=== PATIENT | female | born 1980 | race Caucasian/White ===

== ENCOUNTER 2019-01-07 19:40 | Emergency (ER) | payer BC ==
--- NOTE | 2019-01-07 19:46 | EDM.PDOC ---
ED HPI GENERAL MEDICAL PROBLEM - General Chief Complaint: Lower Extremity Injury/Pain Stated Complaint: RT KNEE INJURY Time Seen by Provider: 01/07/19 19:45 Source of Information: Reports: Patient History Limitations: Reports: No Limitations - History of Present Illness INITIAL COMMENTS - FREE TEXT/NARRATIVE: HISTORY AND PHYSICAL: History of present illness: Patient is a 38-year-old female who presents to the emergency room with complaints of right knee pain post fall on 01/02/2019. She states she was walking when her dog had stepped in front of her causing her to trip and fall landing on her right knee. Since that time she has had pain which has not resolved. She has been using Tylenol and ibuprofen with minimal relief. She denies hitting her head or having any loss of consciousness. She denies any other extremity involvement. Denies any systemic complaints. Review of systems: As per history of present illness and below otherwise all systems reviewed and negative. Past medical history: As per history of present illness and as reviewed below otherwise noncontributory. Surgical history: As per history of present illness and as reviewed below otherwise noncontributory. Social history: See social history for further information Family history: As per history of present illness and as reviewed below otherwise noncontributory. Physical exam: General: Well developed and well nourished 38-year-old female. Alert and oriented. Nontoxic appearing and in no acute distress. HEENT: Atraumatic, normocephalic, pupils equal and reactive bilaterally, negative for conjunctival pallor or scleral icterus, mucous membranes moist, trachea midline. No drooling or trismus noted. No meningeal signs. No hot potato voice noted. Lungs: Clear to auscultation, breath sounds equal bilaterally, chest nontender. Heart: S1S2, regular rate and rhythm without overt murmur Abdomen: Soft, nondistended, nontender. Negative for masses or costovertebral tenderness. Pelvis: Stable nontender. Skin: Intact, warm, dry. No lesions or rashes noted. Extremities: Ambulatory, moves all extremities per self without difficulty or deficits, negative for cords or calf pain. No knee instability. Complaining of pain to the medial and lateral ligaments of the knee. No patellar or posterior knee pain. The pulse. Cap refill less than 3 seconds. Neurovascular unremarkable. Neuro: Awake, alert, oriented. Cranial nerves II through XII unremarkable. Cerebellum unremarkable. Motor and sensory unremarkable throughout. Exam nonfocal. Notes: Patient is aware of the limitations of x-ray. Encouraged her to follow-up with orthopedic as she may need further imaging. Patient fitted for crutches and knee immobilizer. Medication and supportive care measures were reviewed and discussed. Voices understanding and is agreeable to plan of care. Denies any further questions or concerns at this time. Diagnostics: Knee x-ray Therapeutics: Knee immobilizer, crutches, Tramadol Prescription: Tramadol Impression: Right knee injury Plan: 1. Rest, ice, elevate the affected extremity. Please wear the splint as directed. 2. Tylenol and/or Ibuprofen as needed for pain management. 3. Follow up with the Orthopedic provider as we discussed. Return to the ED as needed and as discussed. Definitive disposition and diagnosis as appropriate pending reevaluation and review of above. Right Knee Pain Score (Numeric/FACES): 7 - Related Data Allergies Allergy/AdvReac Type Severity Reaction Status Date / Time No Known Allergies Allergy Verified 01/07/19 19:51 Home Meds: Home Meds FLUoxetine HCl [Prozac] 1.5 tab PO DAILY 01/07/19 [History] cloNIDine HCl [Catapres] 0.2 mg PO DAILY 01/07/19 [History] traMADol [Ultram] 50 mg PO Q4H PRN #15 tab 01/07/19 [Rx] Review of Systems - Review of Systems Review Of Systems: ROS reveals no pertinent complaints other than HPI. ED EXAM, GENERAL - Physical Exam Exam: See Below (See dictation) Course - Vital Signs Last Recorded V/S: Last Vital Signs Temp 98.3 F 01/07/19 20:28 Pulse 80 01/07/19 20:28 Resp 18 01/07/19 20:28 BP 163/80 H 01/07/19 20:28 Pulse Ox 98 01/07/19 20:28 - Orders/Labs/Meds Orders: Active Orders 24 hr Category Date Time Status DME for Discharge [COMM] Stat Oth 01/07/19 19:59 Ordered Meds: Medications Discontinued Medications Generic Name Dose Route Start Last Admin Trade Name Freq PRN Reason Stop Dose Admin Tramadol HCl 50 mg 01/07/19 19:59 01/07/19 20:10 Ultram PO 08/20/19 20:00 50 mg ONETIME ONE Administration Departure - Departure Time of Disposition: 21:30 Disposition: Home, Self-Care 01 Clinical Impression: Right knee injury Qualifiers: Encounter type: initial encounter Qualified Code(s): S89.91XA - Unspecified injury of right lower leg, initial encounter - Discharge Information Prescriptions: traMADol [Ultram] 50 mg PO Q4H PRN #15 tab PRN Reason: Pain Instructions: Crutch Use, Adult, [id number], Knee Sprain, Adult, [id number] , How to Use a Knee Immobilizer, [id number] Referrals: PCP,None [Primary Care Provider] - Forms: ED Department Discharge Additional Instructions: The following information is given to patients seen in the emergency department who are being discharged to home. This information is to outline your options for follow-up care. We provide all patients seen in our emergency department with a follow-up referral. The need for follow-up, as well as the timing and circumstances, are variable depending upon the specifics of your emergency department visit. If you don't have a primary care physician on staff, we will provide you with a referral. We always advise you to contact your personal physician following an emergency department visit to inform them of the circumstance of the visit and for follow-up with them and/or the need for any referrals to a consulting specialist. The emergency department will also refer you to a specialist when appropriate. This referral assures that you have the opportunity for follow-up care with a specialist. All of these measure are taken in an effort to provide you with optimal care, which includes your follow-up. Under all circumstances we always encourage you to contact your private physician who remains a resource for coordinating your care. When calling for follow-up care, please make the office aware that this follow-up is from your recent emergency room visit. If for any reason you are refused follow-up, please contact the [facility] Emergency Department at and asked to speak to the emergency department charge nurse. [facility] [address] [place] [id number] [address] 1. Rest, ice, elevate the affected extremity. Please wear the splint as directed. 2. Tylenol and/or Ibuprofen as needed for pain management. 3. Follow up with the Orthopedic provider as we discussed. Return to the ED as needed and as discussed. - My Orders Last 24 Hours: My Active Orders 01/07/19 19:59 DME for Discharge [COMM] Stat - Assessment/Plan Last 24 Hours: My Active Orders 01/07/19 19:59 DME for Discharge [COMM] Stat
[2019-01-07] MEDS ORDERED: traMADol 50 MG Tab PO ONE (19:59)
--- NOTE | 2019-01-07 20:44 | CR ---
INDICATION: Knee pain COMPARISON: None available. TECHNIQUE: The right knee was examined with AP, lateral and sunrise views for a total of three views. FINDINGS: There is no sign of fracture or dislocation. The medial and lateral compartments are normal in height. There is no sign of a joint effusion. No soft tissue abnormality is seen. IMPRESSION: Normal right knee. Dictated by Luis Galdamez MD @ Jan 07 2019 8:40PM Signed by Dr. Luis Galdamez @ Jan 07 2019 8:41PM
== END 2019-01-07 20:29 | disposition home or self-care (01) ==
LOC: MW.ED 19:40
DX: S89.91XA Unspecified injury of right lower leg, initial encounter (principal); Z79.899 Other long term (current) drug therapy; W01.0XXA Fall on same level from slipping, tripping and stumbling without subsequent striking against object, initial encounter
CPT/HCPCS: 73562; 99283; A9270

== ENCOUNTER 2020-12-20 18:00 | Emergency (ER) | payer BC ==
[2020-12-20] MEDS ORDERED: Lidocaine 1% 10 ML MDV INJECT ONE (19:55)
[2020-12-20] MEDS ORDERED: Diphtheria,Pertussis(Acell),Tetanus Vaccine 0.5 ML Syringe IM ONE (19:56)
--- NOTE | 2020-12-20 19:59 | EDM.PDOC ---
ED HPI GENERAL MEDICAL PROBLEM - General Chief Complaint: Laceration Stated Complaint: CUT THUMB ON Time Seen by Provider: 12/20/20 19:52 - History of Present Illness INITIAL COMMENTS - FREE TEXT/NARRATIVE: 40-year-old female presenting with a number of lacerations to the fingers of the right hand. Patient was opening a can and bent the lid back and sustained cuts to the pinky finger the middle finger and the thumb. Patient presents for evaluation. No pain bleeding was profuse initially but is now ceased. No pain in the hand and no other symptoms. Patient cannot recall her last tetanus. right thumb, laceration Pain Score (Numeric/FACES): 7 - Related Data Allergies Allergy/AdvReac Type Severity Reaction Status Date / Time acetaminophen [From Percocet] Allergy Swollen Verified 12/20/20 19:51 Tongue oxycodone [From Percocet] Allergy Swollen Verified 12/20/20 19:51 Tongue Home Meds: Home Meds FLUoxetine HCl [Prozac] 1.5 tab PO DAILY 01/07/19 [History] cloNIDine HCL [Catapres] 0.2 mg PO DAILY 01/07/19 [History] Past Medical History - Past Health History Medical/Surgical History: Denies Medical/Surgical History HERD TESTER History: Reports: Musculoskeletal History: Reports: Back Pain, Chronic Psychiatric History: Reports: Depression Dermatologic History: Reports: Other (See Below) Other Dermatologic History: lypoma on the left x2 - Past Surgical History HEENT Surgical History: Reports: Adenoidectomy, Oral Surgery, Tonsillectomy GI Surgical History: Reports: Bariatric Procedure, Cholecystectomy Female Surgical History: Reports: Section, Hysterectomy, Tubal Ligation Other Female Surgeries/Procedures: x3, Partial Hyst Social & Family History - Family History Family Medical History: No Pertinent Family History - Tobacco Use Tobacco Use Status *Q: Never Tobacco User - Recreational Drug Use Recreational Drug Use: No ED ROS GENERAL - Review of Systems Review Of Systems: See Below Free Text/Narrative/Comment: General: No fever. Skin: Per HPI Musculoskeletal: No myalgias/arthralgias. Neurologic: No headache. ED EXAM, SKIN/RASH Exam: See Below Text/Narrative:: General Appearance: No acute distress, appears comfortable HEENT: Normocephalic/atraumatic, sclera anicteric, mucous membranes moist Neck: Normal range of motion Musculoskeletal: 2+ left radial pulse, median radial and ulnar nerves intact in the right hand, 1.5 cm linear superficial laceration in the pad of the right thumb no tendon involvement strength intact in the first MCP and PIP in all planes of motion and painless, there is a 1 mm extremely superficial wound to the pad of the left middle finger it does not involve any deeper structures there is a 3 mm superficial laceration at the tip of the pad of the left pinky finger again no violation of deeper structures and no limitation in tendon exam Neurologic: Awake, alert, no obvious deficits, moving all extremities Psychiatric: Appropriate, cooperative ED SKIN PROCEDURES - Additional/Other Procedure(s) Other (Free Text) Procedure(s): Laceration Repair Procedure Location: Right thumb Length: 1.2 cm Suture size and type: 5-0 nylon Number of sutures: 3 Complexity: Simple Time out: Yes, confirmed patient, place, procedure correct Consent: Verbal Suture technique: Simple interrupted Procedure: The wound was irrigated copiously with normal saline or sterile water. Close inspection revealed no evidence for retained foreign bodies. Anesthesia was achieved using lidocaine. Sutures were placed using the above technique with approximation of the wound edges. Sterile dressing was applied to the closed wound. Complications: None Performed by: Zeferino Egan MD Laceration Repair Procedure Location: Pad of right pinky Length: 5 mm Suture size and type: Dermabond Number of sutures: N/A Complexity: Simple Time out: Yes, confirmed patient, place, procedure correct Consent: Verbal Suture technique: Simple interrupted Procedure: The wound was irrigated copiously with normal saline or sterile water. Close inspection revealed no evidence for retained foreign bodies. Anesthesia was achieved using lidocaine. Sutures were placed using the above technique with approximation of the wound edges. Sterile dressing was applied to the closed wound. Complications: None Performed by: Zeferino Egan MD Course - Vital Signs Last Recorded V/S: Last Vital Signs Temp 97.4 F 12/20/20 19:49 Pulse 70 12/20/20 19:49 Resp 16 12/20/20 19:49 BP 130/61 12/20/20 19:49 Pulse Ox 96 12/20/20 19:49 - Orders/Labs/Meds Orders: Active Orders 24 hr Category Date Time Status Vaccines to be Administered [RC] PER UNIT ROUTINE Care 12/20/20 19:56 Active Meds: Medications Discontinued Medications Generic Name Dose Route Start Last Admin Trade Name Christa PRN Reason Stop Dose Admin Diphtheria/Tetanus/Acell Pertussis 0.5 ml 12/20/20 19:56 12/20/20 20:14 Diphtheria,Pertussis(Acell),Tetanus Vaccine 0.5 Ml Syringe IM 12/20/20 19:57 0.5 ml .ONCE ONE Administration Lidocaine HCl 10 ml 12/20/20 19:55 12/20/20 20:12 Lidocaine 1% 10 Ml Mdv INJECT 12/20/20 19:56 Not Given ONETIME ONE Lidocaine HCl Confirm 12/20/20 20:10 12/20/20 20:12 Lidocaine 1% 5 Ml Sdv Administered 12/20/20 20:11 Not Given Dose 5 ml .ROUTE .STK-MED ONE Lidocaine HCl 5 ml 12/20/20 20:12 12/20/20 20:14 Lidocaine 1% 5 Ml Sdv INJECT 12/20/20 20:13 5 ml ONETIME ONE Administration Octyl Cyanoacrylate Confirm 12/20/20 20:44 Octyl 2-Cyanoacrylate 1 Tube Administered 12/20/20 20:45 Dose 1 applic .ROUTE .STK-MED ONE Departure - Departure Time of Disposition: 20:55 Disposition: Home, Self-Care 01 Condition: Good Clinical Impression: Laceration - Discharge Information *PRESCRIPTION DRUG MONITORING PROGRAM REVIEWED*: Not Applicable *COPY OF PRESCRIPTION DRUG MONITORING REPORT IN PATIENT LOGAN: Not Applicable Instructions: Laceration Care, Adult Referrals: Jenelle Carnes DO [Primary Care Provider] - Forms: ED Department Discharge Additional Instructions: Your stitches need to be removed in 7 to 10 days this can be done here in the ED at an urgent care or with your primary care doctor. Leave the dressing in place until tomorrow evening after that you can take the dressing down keep the wounds covered. You can wash your hands normally please be sure to wear an occlusive glove if you are doing any activity that could get your hand dirty and be sure not to submerge her hand in water until the stitches are removed. The following information is given to patients seen in the emergency department who are being discharged to home. This information is to outline your options for follow-up care. We provide all patients seen in our emergency department with a follow-up referral. The need for follow-up, as well as the timing and circumstances, are variable depending upon the specifics of your emergency department visit. If you don't have a primary care physician on staff, we will provide you with a referral. We always advise you to contact your personal physician following an emergency department visit to inform them of the circumstance of the visit and for follow-up with them and/or the need for any referrals to a consulting specialist. The emergency department will also refer you to a specialist when appropriate. This referral assures that you have the opportunity for follow-up care with a specialist. All of these measure are taken in an effort to provide you with optimal care, which includes your follow-up. Under all circumstances we always encourage you to contact your private physician who remains a resource for coordinating your care. When calling for follow-up care, please make the office aware that this follow-up is from your recent emergency room visit. If for any reason you are refused follow-up, please contact the [facility] Emergency Department at and asked to speak to the emergency department charge nurse. Sepsis Event Note (ED) - Evaluation Sepsis Screening Result: No Definite Risk - Focused Exam Vital Signs: Vital Signs Temp Pulse Resp BP Pulse Ox 12/20/20 19:49 97.4 F 70 16 130/61 96 - My Orders Last 24 Hours: My Active Orders 12/20/20 19:56 Vaccines to be Administered [RC] PER UNIT ROUTINE - Assessment/Plan Last 24 Hours: My Active Orders 12/20/20 19:56 Vaccines to be Administered [RC] PER UNIT ROUTINE Assessment:: 40-year-old female presenting with hand lacerations as described the thumb laceration will require a few sutures the pinky laceration will be secured with Dermabond to prevent recurrent bleeding the middle finger does not require any care at this time. No sign of infection no sign of deeper structure involvement no sign of neurovascular injury. Will update tetanus
[2020-12-20] MEDS ORDERED: Octyl 2-Cyanoacrylate 1 APPLIC TUBE TOP ONE (20:25)
[2020-12-20] MEDS ORDERED: Octyl 2-Cyanoacrylate 1 Tube ONE (20:44)
== END 2020-12-20 21:03 | disposition home or self-care (01) ==
LOC: MW.ED 18:00
DX: S61.011A Laceration without foreign body of right thumb without damage to nail, initial encounter (principal); S61.216A Laceration without foreign body of right little finger without damage to nail, initial encounter; Z23 Encounter for immunization; Z88.5 Allergy status to narcotic agent; W26.8XXA Contact with other sharp object(s), not elsewhere classified, initial encounter
CPT/HCPCS: 12001; 90471; 90715; 99282; A9270

== ENCOUNTER 2021-09-26 11:17 | Emergency (ER) | payer BC ==
[2021-09-26] MEDS ORDERED: Lidocaine/Epineph/Tetracaine 3 ML Syringe TOP ONE (11:46)
[2021-09-26] MEDS ORDERED: Iopamidol 755 MG/ML 500 ML Multipack Bottle IVPUSH STA (12:24)
[2021-09-26 12:54] LABS: ACETAMINOPHEN <2.0 ug/mL; BLOOD UREA NITROGEN,BUN 5 mg/dL (7.0-18.0); CARBON DIOXIDE,CO2 25.9 mmol/L (21.0-32.0); CHLORIDE,CL 103 mmol/L (98-107); GLUCOSE RANDOM 143 mg/dL (74-106); POTASSIUM,K 3.4 mmol/L (3.5-5.1); SODIUM,NA 138 mmol/L (136-145)
[2021-09-26] MEDS ORDERED: Lidocaine 1% 5 ML VIAL INJECT ONE (13:20)
[2021-09-26] MEDS ORDERED: Bupivacaine 0.25% 10 ML SDV INJECT ONE (13:20)
[2021-09-26] MEDS ORDERED: Octyl 2-Cyanoacrylate 1 Tube ONE (14:01)
[2021-09-26] MEDS ORDERED: Bacitracin Oint 1 GM U/D Packet TOP ONE (14:12)
== END 2021-09-26 14:52 ==
LOC: MW.ED 11:17
DX: S61.411A Laceration without foreign body of right hand, initial encounter (principal); S61.412A Laceration without foreign body of left hand, initial encounter; R45.851 Suicidal ideations; Z90.49 Acquired absence of other specified parts of digestive tract; Z90.710 Acquired absence of both cervix and uterus; Z20.822 Contact with and (suspected) exposure to COVID-19; Z88.6 Allergy status to analgesic agent; Z88.5 Allergy status to narcotic agent; W26.8XXA Contact with other sharp object(s), not elsewhere classified, initial encounter
CPT/HCPCS: 12006; 36415; 70450; 70496; 70498; 80053; 80143; 80179; 80305; 80307; 81001; 81025; 83735; 84443; 85025; 87635; 93005; 99285; A9270; J3490; Q9967; U0002

== ENCOUNTER 2024-04-16 16:44 | Emergency (ER) | payer BC ==
[2024-04-16] MEDS: Ketorolac 30 MG/ML SDV IVPUSH ONE (18:07)
== END 2024-04-16 18:49 | disposition home or self-care (01) ==
LOC: MW.ED 16:44
DX: S93.402A Sprain of unspecified ligament of left ankle, initial encounter (principal); Z79.899 Other long term (current) drug therapy; Z88.6 Allergy status to analgesic agent; Z75.8 Other problems related to medical facilities and other health care; Z88.5 Allergy status to narcotic agent; W01.0XXA Fall on same level from slipping, tripping and stumbling without subsequent striking against object, initial encounter; X50.9XXA Other and unspecified overexertion or strenuous movements or postures, initial encounter
CPT/HCPCS: 73610; 96374; 99283; J1885

== ENCOUNTER 2025-04-21 08:57 | Emergency (ER) | payer BC ==
[2025-04-21] MEDS ORDERED: Sodium Chloride 0.9% 2.5 ML Syringe FLUSH PRN (08:58)
[2025-04-21] MEDS ORDERED: Sodium Chloride 0.9% 10 ML Syringe FLUSH PRN (08:58)
[2025-04-21 09:30] LABS: BASOPHILS ABSOLUTE AUTO 0.04 K/uL (0.00-0.20); BASOPHILS PERCENT AUTO 0.6 % (0.0-1.0); EOSINOPHILS ABSOLUTE AUTO 0.07 K/uL (0.00-0.45); EOSINOPHILS PERCENT AUTO 1.1 % (0.0-6.0); IMMATURE GRAN ABSOLUTE AUTO 0.01 K/uL (0.00-0.05); IMMATURE GRAN PERCENT AUTO 0.2 % (0.0-0.4); LYMPHOCYTES ABSOLUTE AUTO 2.30 K/uL (1.00-4.80); LYMPHOCYTES PERCENT AUTO 35.2 % (24.0-44.0); MEAN PLATELET VOLUME 9.4 fL (9.4-12.3); MONOCYTES ABSOLUTE AUTO 0.38 K/uL (0.00-0.80); MONOCYTES PERCENT AUTO 5.8 % (0.0-8.0); NEUTROPHILS ABSOLUTE AUTO 3.73 K/uL (1.80-7.70); NEUTROPHILS PERCENT AUTO 57.1 % (41.0-71.0); NRBC ABSOLUTE 0.00 K/uL (0.00-0.02); NRBC PERCENT 0.0 /100WBC (0.0-0.2); PLATELET COUNT,PLT 330 K/uL (150-400); RED BLOOD CELL COUNT 6.10 M/uL (4.10-5.30); WHITE BLOOD CELL COUNT,WBC 6.53 K/uL (3.9-11.3)
[2025-04-21] MEDS: Ketorolac 30 MG/ML SDV IVPUSH ONE (09:37)
[2025-04-21 09:43] LABS: D-DIMER QUANTITATIVE 0.43 mg/L FEU (0.00-0.50); INR 0.97 (0.86-1.11); PTT,PARTIAL THROMBOPLSTIN TIME 25.4 SEC (23.9-30.7)
[2025-04-21 10:02] LABS: A/G RATIO 1.2 (0.9-1.6); ALANINE AMINOTRANSFERASE,ALT 13.0 IU/L (14-63); ASPARTATE AMNIOTRANSFERASE,AST 13.0 IU/L (15-37); BILIRUBIN TOTAL 0.3 mg/dL (0.2-1.0); BLOOD UREA NITROGEN,BUN 14.0 mg/dL (7.0-18.0); CARBON DIOXIDE,CO2 24.3 mmol/L (21.0-32.0); CHLORIDE,CL 102.0 mmol/L (98-107); CREATININE 0.9 mg/dL (0.6-1.0); EST CRCL DRUG DOSING (CG) 68.88 mL/min; GLUCOSE RANDOM 130.0 mg/dL (74-106); POTASSIUM,K 3.6 mmol/L (3.5-5.1); PROTEIN TOTAL,TP 7.2 g/dL (6.4-8.2); SODIUM,NA 138.0 mmol/L (136-145)
[2025-04-21 10:06] LABS: ESTIMATED GFR 81.0 mL/min (>60)
== END 2025-04-21 12:20 | disposition home or self-care (01) ==
LOC: MW.ED 08:57
DX: M94.0 Chondrocostal junction syndrome [Tietze] (principal); F41.0 Panic disorder [episodic paroxysmal anxiety]; I10 Essential (primary) hypertension; F17.200 Nicotine dependence, unspecified, uncomplicated; Z95.1 Presence of aortocoronary bypass graft; Z88.6 Allergy status to analgesic agent; Z88.5 Allergy status to narcotic agent; Z79.899 Other long term (current) drug therapy
CPT/HCPCS: 36415; 71045; 80053; 83690; 83735; 84484; 85025; 85379; 85610; 85730; 87428; 96374; 99285; A9270; J1885; 99284